=== PATIENT | female | born 1940 | race Caucasian/White ===

== ENCOUNTER 2016-06-20 10:14 | Day surgery (SDC) | payer OTHER ==
[2016-06-10 11:41] VITALS: BMI 23.5
[2016-06-20] MEDS ORDERED: MIDAZOLAM HCL 2 MG/2 ML SINGLE DOSE VIAL ONE (12:48)
[2016-06-20] MEDS ORDERED: ROPIVACAINE HCL 0.5% 30ML VIAL ONE (12:51)
[2016-06-20] MEDS ORDERED: DEXAMETHASONE SOD PHOSPHATE/PF 10 MG/ML SDV ONE (12:51)
--- NOTE | 2016-06-20 13:03 | HP ---
History & Physical Update - History History: No Change - Physical Physical: No Change - Assessment Assessment: No Change - Plan Plan: No Change
[2016-06-20] MEDS ORDERED: PROPOFOL 20 ML ONE ×2 (13:15)
[2016-06-20] MEDS ORDERED: ceFAZolin SODIUM 1 GM VIAL ONE (13:51)
[2016-06-20] MEDS ORDERED: DEXAMETHASONE SOD PHOSPHATE 4 MG/1 ML VIAL ONE (14:02)
[2016-06-20] MEDS ORDERED: KETOROLAC TROMETHAMINE 30 MG/1 ML VIAL ONE (14:02)
[2016-06-20] MEDS ORDERED: ONDANSETRON 4 MG/2 ML VIAL ONE (14:02)
[2016-06-20] MEDS ORDERED: BUPIVACAINE HCL/EPINEPHRINE/PF 30 ML VIAL IJ ONE (14:12)
[2016-06-20] MEDS ORDERED: oxyCODONE HCL 5 MG TABLET PO PRN (14:25)
--- NOTE | 2016-06-20 14:28 | OP ---
Operative Note - Note: Operative Date: 06/20/16 Pre-Operative Diagnosis: right shoulder biceps partial tear, partial rotator cuff tear Operation: rsa, biceps tenotomy, decompression Post-Operative Diagnosis: Same as Pre-op Surgeon: Nader Elizondo Anesthesia: Local Operative Report Dictated: Yes
--- NOTE | 2016-06-20 14:28 | DS ---
Physical Examination Vital Signs: Vital Signs Temperature 97.9 F 06/20/16 10:35 Pulse Rate 98 H 06/20/16 10:35 Respiratory Rate 16 06/20/16 10:35 Blood Pressure 143/69 06/20/16 10:35 O2 Sat by Pulse Oximetry (%) 99 06/20/16 10:35 Discharge Summary Reason For Visit: RIGHT SHOULDER ROTATOR CUFF TEAR Condition: Good - Instructions Diet, Activity, Other Instructions: Post Operative Instructions: Shoulder Arthroscopy Dr Nader Elizondo 1. Pain following a Shoulder Arthroscopy is variable and can be significant. Some patients will have more pain than others. You have been provided with a prescription for medication that contains a narcotic. You are not allowed to drive while on this medication. You should NOT take Tylenol (Acetaminophen) when taking the pain medication ( it will result in an overdose). Feel free to take medications such as Ibuprofen or Naprosyn in addition to the pain medicine if you do not have any problems with the NSAID class of medications. 2. Apply ice to the shoulder for 15 minutes every hour. You may continue this for as many days as necessary. 3. You may find sleeping on an incline (reclining chair) to be more comfortable for the first few days. 4. You may remove your sling when the arm is comfortable. 5. You may use the arm as tolerated. 6. You may remove the bandages in 48 hours. You may shower at that point. 7. Place band-aids on the sutures after your shower.Do not put any creams or lotions on the incision until after the sutures are removed. 8. Please call the office to schedule a visit to have your sutures removed. 9. If for any reason you believe you may have an infection or are concerned, please feel free to call me. I can be reached through our office number 24 hours a day. 10. Please call our office with any questions; we will review the surgical findings during your post-operative visit. Disposition: HOME - Home Medications Comprehensive Discharge Medication List: Ambulatory Orders Aspirin [Aspirin EC] 81 mg PO HS 06/10/16 Atorvastatin Ca [Lipitor] 10 mg PO HS 06/10/16 Metoprolol Tartrate 25 mg PO HS 06/10/16 Zolpidem Tartrate [Ambien] 10 mg PO HS 06/10/16
[2016-06-20 15:09] VITALS: TEMP 97.7
[2016-06-20 15:37] VITALS: BP 142/62; PULSE 66
--- NOTE | 2016-06-24 13:33 | PATH ---
Surgical Pathology Report Patient Name: JOE FALK [facility]. Rec. #: [id number] /Age/Gender: 1940 (Age: 76) / F Account: [id number] Location: [facility] Taken: 06/23/2016 Received: 06/23/2016 Reported: 06/24/2016 Physicians: Nader Elizondo M.D. Specimen(s) Received RIGHT SHOULDER SHAVINGS Clinical History Right shoulder partial rotator cuff tear and bicep tear Final Diagnosis RIGHT SHOULDER, ARTHROSCOPIC SHAVINGS: FIBROCARTILAGE WITH MYXOID DEGENERATIVE CHANGES, AND PORTIONS OF SYNOVIUM. Electronically Signed Doug Alanis M.D. Gross Description Received in formalin, labeled "right shoulder shavings," is a 1.8 x 1.5 x 0.2 cm aggregate of andrews-yellow soft tissue fragments. The specimen is entirely submitted in one cassette. 06/23/201606/23/2016
== END 2016-06-20 15:30 | disposition home or self-care (01) ==
LOC: FASU 10:14
PROVIDERS: ATTEND Orthopaedic Surgery
PROC: 0RBJ4ZZ Excision of Right Shoulder Joint, Percutaneous Endoscopic Approach (ICD-10-PCS; 2016-06-20)
PROC: 0LN14ZZ Release Right Shoulder Tendon, Percutaneous Endoscopic Approach (ICD-10-PCS; 2016-06-20)
PROC: 0RBJ4ZZ Excision of Right Shoulder Joint, Percutaneous Endoscopic Approach (ICD-10-PCS; 2016-06-20)
PROC: 0LB14ZZ Excision of Right Shoulder Tendon, Percutaneous Endoscopic Approach (ICD-10-PCS; principal; 2016-06-20 13:57)
PROC: 0RNJ4ZZ Release Right Shoulder Joint, Percutaneous Endoscopic Approach (ICD-10-PCS; 2016-06-20 13:57)
DX: M75.121 Complete rotator cuff tear or rupture of right shoulder, not specified as traumatic (principal); M66.821 Spontaneous rupture of other tendons, right upper arm; M67.911 Unspecified disorder of synovium and tendon, right shoulder; M65.811 Other synovitis and tenosynovitis, right shoulder
CPT/HCPCS: 88304-TC